=== PATIENT | male | born 1970 | race Caucasian/White ===

== ENCOUNTER 2020-11-21 07:10 | Day surgery (SDC) | payer OTHER ==
[~2020-11-21 07:10] MED LIST: GABAPENTIN800 M1 PO; HUMIRA40 MG/0.2; METHOTREXATE2.5 MG PO; NORVASC2.5 MG PO; PERCOCET 10-321 EACH PO; TELMISARTAN-HC1 EACH PO; ULTRAM50 MG PO
== END 2020-11-21 21:00 | disposition home or self-care (01) ==
LOC: CIR.AMB 07:10
PROVIDERS: ATTEND Orthopaedic Surgery Hand Surgery
DX: M19.231 Secondary osteoarthritis, right wrist (principal); M05.831 Other rheumatoid arthritis with rheumatoid factor of right wrist; Z20.822 Contact with and (suspected) exposure to COVID-19